=== PATIENT | male | born 1935 | race Caucasian/White ===

== ENCOUNTER → 2019-04-18 | Outpatient (CLI) | payer OTHER | END | disposition home or self-care (01) | LOC: RAD 09:58 | DX: Z01.818 Encounter for other preprocedural examination (principal) ==

== ENCOUNTER 2019-05-03 06:54 | Outpatient (CLI) | payer OTHER ==
[2019-05-03] MEDS ORDERED: LIPITOR20 MG PO (09:29)
[2019-05-03] MEDS ORDERED: TAMS0.4C PO (09:29)
[2019-05-03] MEDS ORDERED: [UNRECOGNIZED DRUG - OTHER] PO (09:30)
== END 2019-05-03 07:08 | disposition home or self-care (01) ==
LOC: EKG 06:54
DX: Z01.810 Encounter for preprocedural cardiovascular examination (principal)

== ENCOUNTER 2019-05-07 07:39 | Inpatient (IN) | payer OTHER ==
[~2019-05-07 07:39] MED LIST: LIPITOR20 MG PO; TAMS0.4C PO; [UNRECOGNIZED DRUG - OTHER] PO
== END 2019-05-08 10:04 | disposition home or self-care (01) | DRG 688 ==
LOC: CIR.AMB 07:39 → O/R 13:54 → SURH 13:54
PROVIDERS: ADMIT Urology
PROC: BT12YZZ Fluoroscopy of Left Kidney using Other Contrast (ICD-10-PCS; 2019-05-07)
PROC: 0TB48ZX Excision of Left Kidney Pelvis, Via Natural or Artificial Opening Endoscopic, Diagnostic (ICD-10-PCS; principal; 2019-05-07 07:00)
DX: C65.2 Malignant neoplasm of left renal pelvis (principal); C65.1 Malignant neoplasm of right renal pelvis; R31.0 Gross hematuria; I10 Essential (primary) hypertension; I25.10 Atherosclerotic heart disease of native coronary artery without angina pectoris

== ENCOUNTER 2019-06-06 09:32 | Inpatient (IN) | payer OTHER ==
[~2019-06-06] VITALS: Ht 195.6 cm; Wt 63.5 kg
[2019-06-25] MEDS ORDERED: PROPAFENONE HC150 MG PO (08:07)
== END 2019-06-29 14:01 | disposition home or self-care (01) | DRG 658 ==
LOC: SURG 06-18 10:15 → O/R 06-25 05:00 → SURG 06-25 05:00 → SURH 06-26 08:08 → SURG 06-26 09:57
PROVIDERS: ADMIT Urology
PROC: 0TT74ZZ Resection of Left Ureter, Percutaneous Endoscopic Approach (ICD-10-PCS; 2019-06-25)
PROC: 0TT14ZZ Resection of Left Kidney, Percutaneous Endoscopic Approach (ICD-10-PCS; principal; 2019-06-25 07:00)
DX: C64.2 Malignant neoplasm of left kidney, except renal pelvis (principal)

== ENCOUNTER → 2019-07-06 | Outpatient (CLI) | payer OTHER ==
[~2019-07-06] MED LIST changes: +PROPAFENONE HC150 MG PO
== END | disposition home or self-care (01) ==
LOC: RX STUDY 09:15
DX: C67.8 Malignant neoplasm of overlapping sites of bladder (principal)
CPT/HCPCS: 74430; 51600; Q9958

== ENCOUNTER 2020-03-28 07:00 | Day surgery (SDC) | payer OTHER ==
[~2020-03-28] VITALS: Ht 167.6 cm; Wt 63.5 kg
[~2020-03-28 07:00] MED LIST changes: +RITMOL PO
== END 2020-03-28 13:00 | disposition home or self-care (01) ==
LOC: CIR.AMB 07:00 → SURH 07:58 → O/R 07:58 → EDSTATUS 09:15 → SURH 09:15 → CIR.AMB 13:00 → SURH 14:00 → O/R 16:55 → EDSTATUS 03-31 09:15 → ADM 03-31 09:15
PROVIDERS: ATTEND Urology
DX: C67.4 Malignant neoplasm of posterior wall of bladder (principal); C67.5 Malignant neoplasm of bladder neck

== ENCOUNTER 2020-03-29 00:58 | Inpatient (IN) | payer OTHER ==
[~2020-03-29] VITALS: Ht 167.6 cm; Wt 63.5 kg
== END 2020-04-02 09:42 | disposition home or self-care (01) | DRG 699 ==
LOC: ER 00:58 → SURH 16:45
PROVIDERS: ADMIT Urology; ATTEND Urology
PROC: 0T2BX0Z Change Drainage Device in Bladder, External Approach (ICD-10-PCS; 2020-03-29)
PROC: 30233N1 Transfusion of Nonautologous Red Blood Cells into Peripheral Vein, Percutaneous Approach (ICD-10-PCS; principal; 2020-03-30)
DX: T83.091A Other mechanical complication of indwelling urethral catheter, initial encounter (principal); D62 Acute posthemorrhagic anemia; R33.8 Other retention of urine; C67.5 Malignant neoplasm of bladder neck

== ENCOUNTER 2021-04-03 05:55 | Day surgery (SDC) | payer OTHER ==
[~2021-04-03 05:55] MED LIST changes: +COZAAR25 MG PO
== END 2021-04-03 12:00 | disposition home or self-care (01) ==
LOC: CIR.AMB 05:55
PROVIDERS: ATTEND Urology
DX: N30.00 Acute cystitis without hematuria (principal); N30.20 Other chronic cystitis without hematuria; Z20.822 Contact with and (suspected) exposure to COVID-19